=== PATIENT | male | born 2000 | race African-American/Black ===

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

== ENCOUNTER 2020-07-29 09:26 | Emergency (ER) | payer BC ==
[~2020-07-29] VITALS: Ht 180.3 cm; Wt 86.0 kg
[~2020-07-29 09:26] MED LIST: CYCL10TA2 PO; NAPR-514 PO
[2020-07-29 10:14] VITALS: BP 124/59
--- NOTE | 2020-07-29 10:46 | PHYS DOC ---
Past Medical History Past Medical History: Anxiety, Depression, Other Additional Past Medical Histor: PTSD Past Surgical History: No Surgical History Smoking Status: Current Every Day Smoker Alcohol Use: Occasionally Drug Use: Marijuana General Adult EDM: Chief Complaint: HAND PROBLEM HPI: HPI: Patient is a 20 year old male who presents with R hand pain along the medial aspect. He got mad and punched a fridge from close range. Pain is 9/10. No radiation up into arm. He is R handed. Has not taken anything for pain prior to coming to the ED. Review of Systems: Review of Systems: Constitutional: Denies fever or chills Eyes: Denies redness or eye pain HENT: Denies nasal congestion or sore throat Respiratory: Denies cough or shortness of breath Cardiovascular: Denies chest pain or palpitations GI: Denies abdominal pain, nausea, or vomiting : Denies dysuria or hematuria Musculoskeletal: Denies back pain, Reports pain of 5th metacarpal and ventral hand Neurologic: Denies headache, focal weakness or sensory changes Complete systems were reviewed and found to be within normal limits, except as documented in this note. Allergies: Allergies: Allergies Coded Allergies Type Severity Reaction Last Updated Verified No Known Drug Allergies 06/21/17 No Physical Exam: PE: Constitutional: Well developed, well nourished, no acute distress, non-toxic appearance HENT: Normocephalic, atraumatic Eyes: PERRL, EOMI, conjunctiva normal, no discharge Neck: Normal range of motion, no tenderness, supple Lungs & Thorax: No respiratory distress, equal chest rise and fall Abdomen: Soft, no tenderness Skin: Warm, dry, no erythema, no rash Back: No tenderness, no CVA tenderness Extremities: Tender to palpation at the carpometacarpal joint, hard prominence just distal to base of ulnar bone, ROM in 1-4th digits, no ROM in 5th digit. Neurologic: Alert and oriented X 3, normal motor function, no focal deficits noted, sensation intact along dorsal/ventral aspects of hand and in 1-4th digits, numbness in 5th digit Psychologic: Affect normal, judgment normal Current Patient Data: Vital Signs: Vital Signs Date Time Temp Pulse Resp B/P (MAP) Pulse Ox O2 Delivery O2 Flow Rate FiO2 07/29/20 10:14 98.3 57 18 124/59 (80) 100 Room Air 98.3 Course & Med Decision Making: Course & Med Decision Making Pertinent Imaging studies reviewed. (See chart for details) Patient is a 20 year old male who presents with R hand pain due to punching a fridge after getting angry. Hand x-ray shows 5th carpometacarpal joint dislocation. Discussed case with Dr. Oakes, orthopedics, who recommended follow up with Dr. Karo Bradshaw, a hand surgeon at [place]. [facility] paged at 1130 and repeated twice with no return call. Reached out to [facility] transfer center for contact with hand surgeon at [facility] at [phone] with no return call. Provided the contact information for hand surgeons in order to set up appointment on his own. Pain medication prescribed. Hand splinted prior to discharge. Patient stable for discharge with outpatient follow-up with hand surgeon. Discussed findings and plan with patient, who acknowledges understanding and agreement. Gini Disclaimer: Gini Disclaimer: This electronic medical record was generated, in whole or in part, using a voice recognition dictation system. Departure Departure Impression: Primary Impression: Dislocation of metacarpal (bone), proximal end of right hand, initial e ncounter Additional Impression: Closed avulsion fracture of shaft of metacarpal bone Qualified Codes: S62.329A - Displaced fracture of shaft of unspecified metacarpal bone, initial encounter for closed fracture Disposition: 01 DC HOME SELF CARE/HOMELESS Condition: STABLE Referrals: UNKNOWN PCP NAME (PCP) Patient Instructions: Cast or Splint Care, [id number], Closed Reduction for Metacarpal Fracture or Dislocation, Care After, Hand Fracture, Metacarpals, [id number] Additional Instructions: Please follow closely with Hand surgeon. You can call orthopedics at [phone] You can also call at Dr. Karo Bradshaw Address: [address] [address] Phone: [facility] Scripts Hydrocodone/Apap 5-325 (NORCO 5-325 TABLET) 1 Each Tablet 0.5-1 TAB PO PRN Q6HRS PRN for PAIN, #10 TAB 0 Refills Prov: NEELA AGEE DO 07/29/20 NEELA AGEE DO Jul 29, 2020 10:46
--- NOTE | 2020-07-29 10:59 | RAD ---
Right hand 3 views. HISTORY: Pain, blunt trauma 3 views were taken of the right hand. There there is dorsal subluxation of the proximal right fifth metacarpal. There are small chip or avulsion fractures at the fifth carpal metacarpal joint. No other acute fracture is noted. IMPRESSION: 1. Dorsal subluxation or dislocation at the joint between the hamate and fifth metacarpal. 2. Small bone densities on the lateral view suggests small chip or avulsion fractures. Electronically signed by: Niles Herrera MD (07/29/2020 10:56 AM) [id number]
[2020-07-29] MEDS ORDERED: IBUPROFEN 200 MG TABLET. PO ONE (13:15)
[2020-07-29] MEDS ORDERED: HYDR-3164 PO (13:17)
== END 2020-07-29 13:45 | disposition home or self-care (01) ==
LOC: ER 09:26
DX: S63.064A Dislocation of metacarpal (bone), proximal end of right hand, initial encounter (principal); F41.9 Anxiety disorder, unspecified; F32.9 Major depressive disorder, single episode, unspecified; F17.200 Nicotine dependence, unspecified, uncomplicated; F12.90 Cannabis use, unspecified, uncomplicated; F43.12 Post-traumatic stress disorder, chronic; Y29.XXXA Contact with blunt object, undetermined intent, initial encounter; Y93.89 Activity, other specified; Y92.89 Other specified places as the place of occurrence of the external cause; Y99.8 Other external cause status
CPT/HCPCS: 29125; 73130; 99283